=== PATIENT | female | born 1955 | race Caucasian/White ===

== ENCOUNTER 2020-08-04 11:29 | Day surgery (SDC) | payer MEDICARE ==
[~2020-08-04] VITALS: Ht 167.6 cm; Wt 95.5 kg
[2020-08-04] VITALS (7 sets, daily range): BP systolic 97–150; BP diastolic 50–76; PULSE 53–60; TEMP 97.4–97.9
[2020-08-04] MEDS ORDERED: ZOLOFT 100MG100 MG PO (13:17)
[2020-08-04] MEDS ORDERED: INDERAL40 MG PO (13:18)
[2020-08-04] MEDS ORDERED: ZITHROMAX 250M250 MG PO (13:19)
[2020-08-04] MEDS ORDERED: LASIX 20MG TABL20 MG PO (13:20)
[2020-08-04] MEDS ORDERED: DEPAKOTE 125MG125 M1 PO (13:21)
[2020-08-04] MEDS ORDERED: VITAMIN D31000 IU PO (13:22)
[2020-08-04] MEDS ORDERED: OSCAL 500 TAB500 MG PO (13:23)
[2020-08-04] MEDS ORDERED: MYRBETR50MG PO (13:24)
[2020-08-04] MEDS ORDERED: ZYRTEC 10MG10 MG PO (13:25)
[2020-08-04] MEDS ORDERED: MAG-OX 400400 MG/TAB PO (13:26)
[2020-08-04] MEDS ORDERED: MELATIN 3 MG-11 TAB PO (13:27)
[2020-08-04] MEDS ORDERED: PRILOSEC 20MG20 MG PO (13:28)
[2020-08-04] MEDS ORDERED: METAMUCIL3.4 GM/Dos PO (13:28)
[2020-08-04] MEDS ORDERED: ASPIRIN E.C. 8181 MG PO (13:29)
[2020-08-04] MEDS ORDERED: PLAVIX 75MG TAB75 MG PO (13:29)
[2020-08-04] MEDS ORDERED: CRESTOR20 MG PO (13:30)
[2020-08-04] MEDS ORDERED: SYSTANE 0.4%-0.1 SOL OP (13:31)
[2020-08-04] MEDS ORDERED: IPRATROPIUM BROM3 M1 (13:32)
--- NOTE | 2020-08-04 16:00 | NUR ---
Pt returned via cart to [facility] from OR. VS remain stable-see flowsheet. Tolerated oral intake, voided and denies pain or nausea. IV removed, pressure dressing applied. Discharge teaching completed with pt and guardian, Sophy, both verbalized understanding. Pt taken via wheelchair to private vehicle for dc home with Sophy to drive.
== END 2020-08-04 16:00 | disposition home or self-care (01) ==
LOC: SDCO 11:29
DX: N32.81 Overactive bladder (principal); N39.41 Urge incontinence; F41.9 Anxiety disorder, unspecified; F32.9 Major depressive disorder, single episode, unspecified; G40.909 Epilepsy, unspecified, not intractable, without status epilepticus; Z96.651 Presence of right artificial knee joint; Z90.710 Acquired absence of both cervix and uterus; Z79.82 Long term (current) use of aspirin; Z79.02 Long term (current) use of antithrombotics/antiplatelets; F17.210 Nicotine dependence, cigarettes, uncomplicated; J44.9 Chronic obstructive pulmonary disease, unspecified; Z86.718 Personal history of other venous thrombosis and embolism; E78.5 Hyperlipidemia, unspecified
CPT/HCPCS: A4215; J0585; J0690; J2704; J7120

== ENCOUNTER → 2020-11-02 | Outpatient (CLI) | payer MEDICARE, MEDICAID ==
[~2020-11-02] MED LIST: ASPIRIN E.C. 8181 MG PO; CRESTOR20 MG PO; CRESTOR40 MG PO; DEPAKOTE 125MG125 M1 PO; DEPAKOTE 250MG250 MG PO; INDERAL40 MG PO; IPRATROPIUM BROM3 M1; KLOR-CON 88 ME1 PO; LASIX 20MG TABL20 MG PO; MAG-OX 400400 MG/TAB PO; MAGNESIUM200 MG PO; MAGNESIUM250 M1 PO; MELATIN 3 MG-11 TAB PO; METAMUCIL3.4 GM/Dos PO; MYRBETR50MG PO; OSCAL 500 TAB500 MG PO; PLAVIX 75MG TAB75 MG PO; PRILOSEC 20MG20 MG PO; PROAIR HFA0.09 MG/AC IH; SYSTANE 0.4%-0.1 SOL OP; VITAMIN D31000 IU PO; VOLTAREN GEL 1%1 TU TP; ZITHROMAX 250M250 MG PO; ZOLOFT 100MG100 MG PO; ZYRTEC 10MG10 MG PO
== END ==
LOC: COL.RAD 09:15
DX: M25.561 Pain in right knee (principal); Z96.651 Presence of right artificial knee joint
CPT/HCPCS: A9503

== ENCOUNTER 2021-01-12 11:50 | Day surgery (SDC) | payer MEDICARE, MEDICAID ==
[~2021-01-12] VITALS: Ht 154.9 cm; Wt 95.9 kg
[2021-01-12] VITALS (8 sets, daily range): BP systolic 115–138; BP diastolic 46–99; PULSE 53–59; TEMP 97.2–98.3
[~2021-01-12 11:50] MED LIST changes: -CRESTOR40 MG PO; -DEPAKOTE 250MG250 MG PO; -KLOR-CON 88 ME1 PO; -MAGNESIUM200 MG PO; -MAGNESIUM250 M1 PO; -PROAIR HFA0.09 MG/AC IH; -VOLTAREN GEL 1%1 TU TP
[2021-01-12] MEDS ORDERED: CRESTOR40 MG PO (14:00)
[2021-01-12] MEDS ORDERED: MAGNESIUM250 M1 PO (14:01)
[2021-01-12] MEDS ORDERED: PROAIR HFA0.09 MG/AC IH (14:02)
[2021-01-12] MEDS ORDERED: OSCAL 500 TAB500 MG PO (14:11)
[2021-01-12] MEDS ORDERED: DEPAKOTE 250MG250 MG PO (14:13)
[2021-01-12] MEDS ORDERED: PRILOSEC 20MG20 MG PO (14:18)
[2021-01-12] MEDS ORDERED: VOLTAREN GEL 1%1 TU TP (14:19)
--- NOTE | 2021-01-12 15:49 | NUR ---
PATIENT TRANSPORTED FROM OR TO BAY 7 ACCOMPANIED BY OR STAFF. MONITORS APPLIED. VSS ON ROOM AIR. PATIENT TALKING WITH STAFF. VERBAL REPORT RECEIVED.
--- NOTE | 2021-01-12 16:00 | NUR ---
VSS ON ROOM AIR. PATIENT ATTEMPTS TO VOID ON BEDPAN. MISSES BEDPAN AND VOIDS ON PAD. WITHOUT PROBLEMS. PATIENT GIVEN DIET PEPSI AND MUFFIN.
--- NOTE | 2021-01-12 16:15 | NUR ---
VSS ON ROOM AIR. PATIENT DENIES DISCOMFORT AND NAUSEA. PATIENT EATS AND DRINKS WITHOUT PROBLEMS. PATIENT WATCHING TV/
--- NOTE | 2021-01-12 16:35 | NUR ---
VSS ON ROOM AIR. PATIENT DENIES DISCOMFORT AND NAUSEA. PATIENT CONTINUES WATCHING TV. DRINKING PEPSI
--- NOTE | 2021-01-12 16:50 | NUR ---
VSS ON ROOM AIR. PATIENT WATCHING TV. DENIES C/O'S DISCOMFORT AND NAUSEA. DESIZING PAD OPERATOR UPDATED ON PATIENT STATUS. SHE WILL CALL US WHEN SHE RETURNS TO HOSPITAL TO HORSE SHOER PATIENT.
--- NOTE | 2021-01-12 17:04 | NUR ---
VSS ON ROOM AIR. PATIENT REQUEST ICE CREAM TO EAT. GIVEN ICE CREAM. IV DC'D WITH CATHETER TIP INTACT. PRESSURE AND BANDAGE APPLIED.
--- NOTE | 2021-01-12 17:35 | NUR ---
Pt continues to rest. Watching tv. Denies needs. Call light within reach.
--- NOTE | 2021-01-12 18:00 | NUR ---
Discharge instructions reviewed. Pt voices understanding. Pt assisted with dressing by nurse.
--- NOTE | 2021-01-12 18:15 | NUR ---
Pt escorted to private car via wheel chair by Renetta MACK. Pt accompanied home by Sophy (spring encaser)
== END 2021-01-12 18:15 | disposition home or self-care (01) ==
LOC: SDCO 11:50
DX: N32.81 Overactive bladder (principal); R35.0 Frequency of micturition; N39.41 Urge incontinence; R15.9 Full incontinence of feces; I10 Essential (primary) hypertension; J44.9 Chronic obstructive pulmonary disease, unspecified; K21.9 Gastro-esophageal reflux disease without esophagitis; K27.9 Peptic ulcer, site unspecified, unspecified as acute or chronic, without hemorrhage or perforation; I73.9 Peripheral vascular disease, unspecified; G40.909 Epilepsy, unspecified, not intractable, without status epilepticus; F17.200 Nicotine dependence, unspecified, uncomplicated; F32.9 Major depressive disorder, single episode, unspecified; F41.9 Anxiety disorder, unspecified; Z90.710 Acquired absence of both cervix and uterus; Z96.651 Presence of right artificial knee joint; Z20.822 Contact with and (suspected) exposure to COVID-19; Z79.02 Long term (current) use of antithrombotics/antiplatelets; Z79.899 Other long term (current) drug therapy; Z79.82 Long term (current) use of aspirin
CPT/HCPCS: A4215; J0585; J0690; J2704; J3010; J7120

== ENCOUNTER 2021-06-08 11:17 | Day surgery (SDC) | payer MEDICARE, MEDICAID ==
[~2021-06-08] VITALS: Ht 167.6 cm; Wt 57.5 kg
[~2021-06-08 11:17] MED LIST changes: +CRESTOR40 MG PO; +DEPAKOTE 250MG250 MG PO; +MAGNESIUM250 M1 PO; +PROAIR HFA0.09 MG/AC IH; +VOLTAREN GEL 1%1 TU TP
[2021-06-08 12:34] VITALS: BP 160/65; PULSE 52; TEMP 98
[2021-06-08] MEDS ORDERED: DEPAKOTE 125MG125 M1 PO (12:51)
[2021-06-08] MEDS ORDERED: MAGNESIUM200 MG PO (12:54)
[2021-06-08] MEDS ORDERED: ZITHROMAX 250M250 MG PO (13:02)
[2021-06-08] MEDS ORDERED: KLOR-CON 88 ME1 PO (13:03)
[2021-06-08 13:34] VITALS: BP 114/48; PULSE 56
--- NOTE | 2021-06-08 13:34 | NUR ---
Patient returns to room 3 per cart from surgery accompanied by Jimbo COKER and Shiv RN. Patient arouses to verbal stimuli and opens eyes and smiles. IV fluids infusing. Temp 98.0 and room air sats 97%. Siderails up x2 and call light in reach. Guardian in room.
[2021-06-08 13:49] VITALS: BP 127/63; PULSE 54
--- NOTE | 2021-06-08 13:49 | NUR ---
Taking ice chips. Room air sats 98%. Denies nausea or pain.
[2021-06-08 14:04] VITALS: BP 121/58; PULSE 50
--- NOTE | 2021-06-08 14:04 | NUR ---
Room air sats 100%. IV to INT and assisted up to the bathroom. Voids and returns to room. Given muffin and grape juice.
--- NOTE | 2021-06-08 14:17 | NUR ---
INT needle discontinued and site is free of redness or swelling. Patient dresses self with help of guardian.
--- NOTE | 2021-06-08 14:31 | NUR ---
Dismissal instructions given and voices understanding of these. Follow up appointment given and provided office number for questions and concerns.
--- NOTE | 2021-06-08 14:34 | NUR ---
Dismissed to home driven by guardian and taken to the front door per wheelchair and assisted into vehicle with dismissal instructions in hand.
== END 2021-06-08 14:34 | disposition home or self-care (01) ==
LOC: SDCO 11:17
DX: N39.41 Urge incontinence (principal); R29.2 Abnormal reflex; R35.0 Frequency of micturition; I10 Essential (primary) hypertension; J44.9 Chronic obstructive pulmonary disease, unspecified; E78.5 Hyperlipidemia, unspecified; F32.9 Major depressive disorder, single episode, unspecified; F41.9 Anxiety disorder, unspecified; G40.909 Epilepsy, unspecified, not intractable, without status epilepticus; I73.9 Peripheral vascular disease, unspecified; Z95.828 Presence of other vascular implants and grafts; Z79.02 Long term (current) use of antithrombotics/antiplatelets; Z79.899 Other long term (current) drug therapy; Z79.82 Long term (current) use of aspirin
CPT/HCPCS: A4215; J0585; J0690; J2704; J7120

== ENCOUNTER 2021-12-14 10:13 | Day surgery (SDC) | payer MEDICARE, MEDICAID ==
[~2021-12-14] VITALS: Ht 170.2 cm; Wt 104.0 kg
[~2021-12-14 10:13] MED LIST changes: +KLOR-CON 88 ME1 PO; +MAGNESIUM200 MG PO
[2021-12-14 11:24] VITALS: BP 132/58; PULSE 51; TEMP 98.1
[2021-12-14] MEDS ORDERED: PREVACID 30MG30 M1 PO (12:01)
[2021-12-14] MEDS ORDERED: DEPAKOTE 250MG250 MG PO (12:03)
[2021-12-14] MEDS ORDERED: ZYRTEC 10MG10 MG PO (12:04)
[2021-12-14 14:01] VITALS: TEMP 98.8
[2021-12-14 14:10] VITALS: BP 119/69; PULSE 58
--- NOTE | 2021-12-14 14:10 | NUR ---
Patient returns to room 1 per cart from PACU accompanied by Rashmi MACK and is awake and alert. IV fluids infusing and site is free of redness. Temp 97.2 and room air sats 97%. Drinking diet Pepsi. Denies pain or nausea. Siderails up x2 and call light in reach.
[2021-12-14 14:25] VITALS: BP 135/59; PULSE 61
--- NOTE | 2021-12-14 14:25 | NUR ---
Resting and sipping on diet Pepsi.
[2021-12-14 14:40] VITALS: BP 129/63; PULSE 64
--- NOTE | 2021-12-14 14:40 | NUR ---
Eating muffin. Denies pain or nausea.
--- NOTE | 2021-12-14 15:10 | NUR ---
Assisted up to the bathroom and voids. Tolerates activity well. Voids and returns to room. IV discontinued and site is free of redness. Given dismissal instructions and voices understanding of these.
--- NOTE | 2021-12-14 15:17 | NUR ---
Patient dismissed to home driven Lulu per private vehicle. Taken to the front door per wheelchair and assisted into vehicle with intructions in hand.
== END 2021-12-14 15:17 | disposition home or self-care (01) ==
LOC: SDCO 10:13
DX: N39.41 Urge incontinence (principal); R35.0 Frequency of micturition; R15.9 Full incontinence of feces; F17.210 Nicotine dependence, cigarettes, uncomplicated
CPT/HCPCS: A4215; J0585; J0690; J1100; J2405; J2704; J3010

== ENCOUNTER 2022-07-13 13:06 | Day surgery (SDC) | payer MEDICARE, MEDICAID ==
[~2022-07-13] VITALS: Ht 167.6 cm; Wt 110.9 kg
[~2022-07-13 13:06] MED LIST changes: +PREVACID 30MG30 M1 PO
[2022-07-13 14:35] VITALS: BP 156/67; PULSE 63; TEMP 98.2
[2022-07-13 15:40] VITALS: BP 135/59; PULSE 62; TEMP 97.5
[2022-07-13 15:55] VITALS: BP 135/59; PULSE 64
[2022-07-13 16:10] VITALS: BP 128/53; PULSE 60
[2022-07-13 16:20] VITALS: BP 132/62; PULSE 62
--- NOTE | 2022-07-13 16:30 | NUR ---
1540 RETURNS TO ROOM 8 PER CART. ALERT. FAMILIARIZED WITH SURROUNDINGS. RESP UNLABORED. MONITORS ON, VITAL SIGNS OBTAINED. DENIES PAIN. 1600 TOLERATES PO WATER, SODA AND MUFFIN WITHOUT NAUSEA. DENIES PAIN. 1615 DISCHARGE INSTRUCTIONS REVIEWED. COPY OF INSTRUCTIONS PLACE IN DISCHARGE FOLDER. PATIENT STATES WILL GIVE THESE PAPERS TO CARDIOTHORACIC ANESTHESIA TECHNICIAN AT [facility]. 1622 SITS ON CHAIR AT BEDSIDE. PATIENT ADMITS TO URINARY INCONTINENCE WHILE LYING ON CART, PAD WET. DRESSES SELF. ADULT ABSORBANT BRIEFS ON. 1630 DISCHARGED PER WHEELCHAIR TO [facility] DRIVEN BY JR JONES
== END 2022-07-13 16:30 | disposition home or self-care (01) ==
LOC: SDCO 13:06
DX: N39.41 Urge incontinence (principal)
CPT/HCPCS: J0585; J0690; J2405; J2704; J3010; J7120

== ENCOUNTER 2022-11-09 16:02 | Day surgery (SDC) | payer MEDICARE, MEDICAID ==
[~2022-11-09] VITALS: Ht 170.2 cm; Wt 108.0 kg
[2022-11-09 16:40] VITALS: BP 141/75; PULSE 60; TEMP 97.6
--- NOTE | 2022-11-09 17:11 | NUR ---
Patient arrived to the unit walking with her caregiver. Alert and oriented x 4, VSS. Caregiver states she has some developmental disabilities and some inestable walking. Patient uses cane for support. Assessment intake done.
[2022-11-09 17:57] LABS: HEMATOCRIT 38.3 % (37.0-47.0); HEMOGLOBIN 13.4 g/dl (12.5-16.0); MEAN CELL VOLUME 91 fl (80.0-100.0); MEAN CORPUSCULAR HEMOGLOBIN 32 pg (27-31); MEAN CORPUSCULAR HGB CONC 35 g/dl (33.0-37.0); MEAN PLATELET VOLUME 12.1 fl (7.4-10.4); PLATELET COUNT 109 K/mm3 (130-400); RED BLOOD COUNT 4.21 M/mm3 (4.10-5.30); REDCELL DISTRIBUTION WIDTH-CV 13.9 % (11.5-14.5)
[2022-11-09] MEDS ORDERED: ZITHROMAX 250M250 MG PO (18:06)
[2022-11-09] MEDS ORDERED: CALCIUM WITH D31 CTB (18:07)
[2022-11-09] MEDS ORDERED: PLAVIX 75MG TAB75 MG PO (18:09)
[2022-11-09] MEDS ORDERED: DEPAKOTE ER 50500 MG PO (18:10)
[2022-11-09 18:11] LABS: CALCIUM 9.5 mg/dL (8.4-10.2); CREATININE, serum 0.99 mg/dL (0.57-1.11); POTASSIUM 3.9 mmol/L (3.5-4.5)
[2022-11-09] MEDS ORDERED: KLOR-CON SPRIN10 MEQ PO (18:19)
[2022-11-09] MEDS ORDERED: CRESTOR20 MG PO (18:21)
[2022-11-09] MEDS ORDERED: B-12 500 MCG PO (18:26)
[2022-11-09] MEDS ORDERED: NATURAL E400 IU PO (18:27)
[2022-11-09] MEDS ORDERED: ZYRTEC 10MG10 MG PO (18:30)
[2022-11-09 19:42] VITALS: BP 109/56; PULSE 57; TEMP 97.7
--- NOTE | 2022-11-09 20:00 | NUR ---
Assessment complete. A&Ox4. Denies pain/nausea/shortness of breath. VS remain stable. 20g INT placed to left wrist x2 attempt. TELE reporting SR. Plan of care discussed fort his shift to include bowel prep/calling for questions/concerns. Verbalizes understanding. Call light in reach. Will monitor.
[2022-11-09 22:39] VITALS: BP 149/51; PULSE 61; TEMP 97.8
[2022-11-10 04:03] VITALS: BP 117/47; PULSE 55; TEMP 97.8
--- NOTE | 2022-11-10 06:26 | NUR ---
Patient has been up most of the night with stools. Currently light sepulveda in color. Has started last phase of split bowl prep. TELE reporting SR. VS remain stable. Right wrist 20g flushes without difficulty. Denies current needs. Call light in reach. Will monitor.
[2022-11-10 06:39] LABS: BASO % 0.5 % (0.0-2.0); EOS # 0.1 K/mm3 (0.0-0.7); EOS % 2.4 % (0.0-4.0); GRAN # 1.8 K/mm3 (1.4-6.5); GRAN % 47.6 % (42.2-75.2); HEMOGLOBIN 12.8 g/dl (12.5-16.0); LYMPH # 1.4 K/mm3 (1.2-3.4); LYMPH % 38.2 % (20.0-51.0); MEAN CELL VOLUME 93 fl (80.0-100.0); MEAN CORPUSCULAR HEMOGLOBIN 33 pg (27-31); MEAN CORPUSCULAR HGB CONC 35 g/dl (33.0-37.0); MEAN PLATELET VOLUME 12.2 fl (7.4-10.4); MONO # 0.4 K/mm3 (0.1-0.6); MONO % 10.8 % (1.7-9.3); PLATELET COUNT 108 K/mm3 (130-400); RED BLOOD COUNT 3.94 M/mm3 (4.10-5.30); REDCELL DISTRIBUTION WIDTH-CV 14.1 % (11.5-14.5)
[2022-11-10 06:41] LABS: HEMATOCRIT 36.7 % (37.0-47.0)
[2022-11-10 06:56] LABS: ALBUMIN 3.5 gm/dL (3.4-4.8); CALCIUM 9.3 mg/dL (8.4-10.2); CREATININE, serum 0.87 mg/dL (0.57-1.11); MAGNESIUM 1.9 mg/dL (1.6-2.6); PHOSPHOROUS 3.5 mg/dL (2.3-4.7); POTASSIUM 3.7 mmol/L (3.5-4.5)
[2022-11-10 07:51] VITALS: BP 121/48; PULSE 60; TEMP 97.6
--- NOTE | 2022-11-10 11:12 | NUR ---
The patient has a developmental disability. SW contacted the patient's person to notify, Klaudia Lester (ph#[phone]), to discuss discharge plan. Klaudia clarified that she is the patient's medical coordinator at [facility]. The patient resides at [facility] in [place]. She states that the patient needs assistance with ADLs and has a cane. They assist the patient with her ADLs. The patient's primary care provider is Paulo Ding APRN at [facility] in [place] and she receives her medications from [facility]. Klaudia states that the patient is her own guardian and has capacity to make her own decisions. She states that the patient does have a DPOA-HC, which designates her brother: Edu Alcala (ph#[phone]). Edu lives in [place]. Klaudia states that the plan is for the patient to return back to [facility] upon discharge and they will provide transport. No additional needs at this time. *Discharge plan: home-[facility]*
[2022-11-10 11:53] VITALS: BP 129/52; PULSE 58; TEMP 97.5
[2022-11-10 13:55] VITALS: BP 139/48; PULSE 57; TEMP 97.8
== END 2022-11-10 16:40 ==
LOC: MEDICAL 16:02 → SDCO 16:02 → MEDICAL 16:03 → SDCO 11-10 12:45
PROVIDERS: Internal Medicine
DX: D12.2 Benign neoplasm of ascending colon (principal); D12.5 Benign neoplasm of sigmoid colon; K57.30 Diverticulosis of large intestine without perforation or abscess without bleeding; K59.09 Other constipation; K21.9 Gastro-esophageal reflux disease without esophagitis; I73.9 Peripheral vascular disease, unspecified; R56.9 Unspecified convulsions; R15.9 Full incontinence of feces; G47.33 Obstructive sleep apnea (adult) (pediatric); F17.210 Nicotine dependence, cigarettes, uncomplicated; F81.9 Developmental disorder of scholastic skills, unspecified; F32.A Depression, unspecified; F79 Unspecified intellectual disabilities; Z79.82 Long term (current) use of aspirin; Z79.01 Long term (current) use of anticoagulants; Z99.81 Dependence on supplemental oxygen
CPT/HCPCS: OP; J2704; J7030